=== PATIENT | male | born 1980 | race American Indian/Alaskan Native ===

== ENCOUNTER 2021-08-24 10:23 | Emergency (ER) | payer MEDICAID ==
--- NOTE | 2021-08-24 10:36 | Emergency Department Report ---
ED Syncope HPI - General Stated Complaint: SYNCOPE Time Seen by Provider: 08/24/21 10:30 - History of Present Illness Initial Comments: patient presents via ambulance after a syncopal event. He was at home. He had eaten breakfast. He did not feel well and felt lightheaded. He stated that he was sitting and resting. He decided to go to his bedroom and lie down. As he was walking back down the diaz to his bedroom, everything "went black." When he came to, he noticed some blood on his mouth. He called 911 at that point. Is never passed out like this before. Patient has no history of trauma otherwise. He states that the right side of his face is a little bit sore. Patient states that prior to passing out he was having some jaw pain while he was eating. It was bilateral. He noticed some left-sided chest pain after he passed out. He states that he fell on the right side. He states that he is no recent illness. There has been no recent travel. He has had no URI symptoms. - Related Data Allergies/Adverse Reactions: Allergies tetracycline Allergy (Verified 08/24/21 10:51) Unknown ED Review of Systems ROS: Stated complaint: SYNCOPE Other details as noted in HPI Comment: All other systems reviewed and negative Constitutional: denies: fever Eyes: denies: vision change ENT: denies: throat pain Respiratory: denies: cough Cardiovascular: as per HPI Endocrine: denies: unexplained weight loss Gastrointestinal: denies: abdominal pain Genitourinary: denies: dysuria Musculoskeletal: denies: back pain Skin: denies: rash Neurological: as per HPI Hematological/Lymphatic: denies: easy bruising ED Past Medical Hx - Past Medical History Previous Medical History?: Yes Additional medical history: Transient renal failure that required temporary dialysis - Family History Family history: no significant ED Physical Exam - General Limitations: No Limitations, Other ( pulse ox noted and normal) General appearance: alert, in no apparent distress - Head Head exam: Present: normocephalic, other ( contusion to the right lower lip) - Eye Eye exam: Present: normal appearance, EOMI. Absent: scleral icterus - ENT ENT exam: Present: mucous membranes moist, normal external ear exam - Neck Neck exam: Present: normal inspection. Absent: tenderness, meningismus - Respiratory Respiratory exam: Present: normal lung sounds bilaterally. Absent: respiratory distress - Cardiovascular Cardiovascular Exam: Present: regular rate, normal rhythm - GI/Abdominal GI/Abdominal exam: Present: soft. Absent: tenderness - Extremities Exam Extremities exam: Present: normal capillary refill. Absent: pedal edema, calf tenderness - Back Exam Back exam: Absent: CVA tenderness (R), CVA tenderness (L) - Neurological Exam Neurological exam: Present: alert, oriented X3, CN II-XII intact, reflexes normal. Absent: motor sensory deficit - Psychiatric Psychiatric exam: Present: normal affect, normal mood - Skin Skin exam: Present: warm, dry ED Course Vital Signs 08/24/21 12:09 O2 Sat by Pulse 98 Oximetry - Reevaluation(s) Reevaluation #1: 08/24/21 10:30 EMS was met upon arrival. IV and labs were ordered. EKG was ordered. Old records reviewed. ED Medical Decision Making - Lab Data Result diagrams: 08/24/21 11:01 08/24/21 11:01 Critical care attestation.: If time is entered above; I have spent that time in minutes in the direct care of this critically ill patient, excluding procedure time. ED Disposition Clinical Impression: MARCOS (acute kidney injury), Dehydration Syncope Qualifiers: Syncope type: unspecified Qualified Code(s): R55 - Syncope and collapse Disposition: HOME / SELF CARE / HOMELESS Is pt being admited?: No Condition: Stable Instructions: Syncope (ED), Dehydration, Adult, [id number], Acute Kidney Injury, Adult, Syncope Additional Instructions: Drink plenty water. Return for problems. Follow-up with your regular doctor for recheck and further management. If you do not have a regular doctor, follow-up with the referral physician. Avoid illicit drugs. Referrals: MELISSA YIN MD [Primary Care Provider] - 3-5 Days LYNETTE SANDERS MD [Staff Physician] - 3-5 Days
[2021-08-24 11:11] LABS: Hematocrit 31.5 % (35.5-45.6); Hemoglobin 9.5 gm/dl (11.8-15.2); Mean Corpuscular HGB Conc 30 % (32-34); Mean Corpuscular Volume 72 fl (84-94); Platelet Count 236 K/mm3 (140-440); Red Blood Count 4.36 M/mm3 (3.65-5.03); Red Cell Distribution Width 17.5 % (13.2-15.2)
[2021-08-24] MEDS ORDERED: SODIUM CHLORIDE 0.9% 1000 ML 1,000 ML IV ONE ×2 (11:37→12:40)
[2021-08-24] MEDS ORDERED: KETOROLAC 30 MG/1 ML INJ IV ONE (11:40)
[2021-08-24 14:44] VITALS: BP 134/90
--- NOTE | 2021-08-25 12:59 | Electrocardiograph Report ---
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
== END 2021-08-24 14:44 | disposition home or self-care (01) ==
LOC: ED 10:23
DX: N17.9 Acute kidney failure, unspecified (principal); E86.0 Dehydration; Z88.1 Allergy status to other antibiotic agents; Z79.899 Other long term (current) drug therapy
CPT/HCPCS: 36415; 80048; 84484; 85027; 93005; 96361; 96374; 99284; J1885; J7030